=== PATIENT | male | born 1975 | race African-American/Black ===

== ENCOUNTER 2018-09-26 07:35 | Outpatient (CLI) | payer OTHER | END 2018-09-26 19:09 | disposition home or self-care (01) | LOC: RESP 07:35 | DX: R40.4 Transient alteration of awareness (principal) ==

== ENCOUNTER 2021-02-08 09:00 | Outpatient (CLI) | payer OTHER | END 2021-02-08 19:16 | disposition home or self-care (01) | LOC: RESP 09:00 | PROVIDERS: ATTEND Specialist | DX: G40.209 Localization-related (focal) (partial) symptomatic epilepsy and epileptic syndromes with complex partial seizures, not intractable, without status epilepticus (principal) ==